=== PATIENT | male | born 1985 | race Hispanic/Latino ===

== ENCOUNTER 2024-06-16 02:54 | Inpatient (IN) | payer SELFPAY ==
[~2024-06-16] VITALS: Ht 180.3 cm; Wt 103.9 kg
[2024-06-16] VITALS (40 sets, daily range): BP systolic 144–192; BP diastolic 90–112; PULSE 67–92; RESP 10–24; TEMP 97.8–98.8; O2SAT 93–100
[2024-06-16] MEDS: NITROGLYCERIN 2% OINT 1 GM PKT TOP ONE (03:17)
[2024-06-16 03:22] LABS: BASOPHILS # (AUTO) 0.1 (0.0-0.1); BASOPHILS % 0.7 % (0.0-1.0); EOSINOPHILS # (AUTO) 0.2 (0.0-0.4); EOSINOPHILS % 2.7 % (0.0-6.0); HEMATOCRIT 38.2 % (38.2-49.6); HEMOGLOBIN 13.4 g/dL (14.0-18.0); LYMPHOCYTES # (AUTO) 2.4 (1.0-3.2); MEAN CORPUSCULAR HEMOGLOBIN 30.7 pg (28-32); MEAN CORPUSCULAR HGB CONC 35.1 g/dL (31-35); MEAN CORPUSCULAR VOLUME 87.4 fL (81-99); MONOCYTES # (AUTO) 0.6 (0.2-0.8); MONOCYTES % 7.3 % (4.4-11.3); NEUTROPHILS # (AUTO) 4.7 (2.1-6.9); NEUTROPHILS % 58.9 % (38.7-80.0); PLATELET COUNT 290 x10e3/uL (140-360); RED BLOOD COUNT 4.37 x10e6/uL (4.3-5.7); WHITE BLOOD COUNT 8.06 x10e3/uL (4.8-10.8)
[2024-06-16] MEDS: ACETAMINOPHEN 325 MG TAB PO ONE (03:30)
[2024-06-16 03:42] LABS: LIPASE 37 U/L (8-78)
[2024-06-16 03:43] LABS: ALBUMIN/GLOBULIN RATIO 1.1 (0.8-2.0); ANION GAP 12.3 mmol/L (8-16); BILIRUBIN,TOTAL 1.2 mg/dL (0.2-1.2); CALCIUM 8.7 mg/dL (8.4-10.2); CREATININE, SERUM 0.93 mg/dL (0.72-1.25); TOTAL PROTEIN 7.6 g/dL (6.5-8.1)
[2024-06-16 03:46] LABS: POTASSIUM 3.3 mmol/L (3.5-5.1)
[2024-06-16 03:50] LABS: ETHANOL < 10.0 mg/dL (0.0-10.0)
[2024-06-16] MEDS: Morphine 4mg INJECTION 4 MG/ML INJ IV ONE (03:53)
[2024-06-16] MEDS: ONDANSETRON HCL INJ 2MG/ML 2ML 2 MG/ML VIAL IV STA (03:53)
[2024-06-16] MEDS: CLONIDINE HCL 0.1 MG TAB PO ONE (03:53)
[2024-06-16 03:58] LABS: AMPHETAMINES SCREEN,URINE NEGATIVE (NEGATIVE); BENZODIAZEPINES SCREEN,URINE NEGATIVE (NEGATIVE); CANNABINOIDS SCREEN,URINE NEGATIVE (NEGATIVE); COCAINE SCREEN,URINE NEGATIVE (NEGATIVE); METHADONE SCREEN, URINE NEGATIVE (NEGATIVE); OPIATES SCREEN,URINE NEGATIVE (NEGATIVE); PHENCYCLIDINE SCREEN,URINE NEGATIVE (NEGATIVE)
[2024-06-16] MEDS ORDERED: ONDANSETRON HCL INJ 2MG/ML 2ML 2 MG/ML VIAL IV PRN (04:30)
[2024-06-16] MEDS ORDERED: Morphine 4mg INJECTION 4 MG/ML INJ IV PRN (04:30)
[2024-06-16] MEDS ORDERED: SODIUM CHLORIDE FLUSH 10 ML SYR INJ PRN (04:30)
[2024-06-16] MEDS: NIFEDIPINE 10 MG CAP PO SCH (04:59)
[2024-06-16] MEDS ORDERED: NITROGLYCERIN 2% OINT 1 GM PKT TOP ONE (06:00)
[2024-06-16] MEDS ORDERED: NITROGLYCERIN 2% OINT 1 GM PKT TOP SCH (06:00)
[2024-06-16] MEDS: ASPIRIN 81 MG ENTERIC COATED PO SCH (08:06)
[2024-06-16] MEDS: LISINOPRIL 10 MG TAB PO SCH (09:27)
[2024-06-16] MEDS: NIFEDIPINE CR 30 MG TAB PO SCH (09:27)
[2024-06-16] MEDS: ACETAMINOPHEN 325 MG TAB PO PRN (09:30)
[2024-06-16 10:57] LABS: TROPONIN I 0.02 ng/mL (0-0.300)
[2024-06-16] MEDS: HYDRALAZINE HCL 20 MG/ML VIAL IV PRN (12:35)
== END 2024-06-16 17:13 | disposition left against medical advice (07) | DRG 305 ==
LOC: ER 03:04 → ERHOLD 04:34 → ICU 05:50
PROVIDERS: ADMIT Internal Medicine; ATTEND Internal Medicine
DX: I16.0 Hypertensive urgency (principal); I10 Essential (primary) hypertension; R51.9 Headache, unspecified; R07.9 Chest pain, unspecified; Z53.29 Procedure and treatment not carried out because of patient's decision for other reasons; R06.02 Shortness of breath; E78.5 Hyperlipidemia, unspecified; Z91.148 Patient's other noncompliance with medication regimen for other reason; R94.31 Abnormal electrocardiogram [ECG] [EKG]; F10.90 Alcohol use, unspecified, uncomplicated; Y90.0 Blood alcohol level of less than 20 mg/100 ml; Z79.899 Other long term (current) drug therapy
CPT/HCPCS: 36415; 71045; 80053; 80061; 80307; 80320; 82550; 83690; 83880; 84484; 85025; 93005; 93306; 99252; 99284; J0360; J2270; J2405